=== PATIENT | male | born 1975 | race African-American/Black ===

== ENCOUNTER 2019-03-26 14:46 | Emergency (ER) | payer MEDICAID ==
[~2019-03-26] VITALS: Ht 188 cm; Wt 81.6 kg
[~2019-03-26 14:46] MED LIST: KEFLEX500 MG ORAL; NKM
--- NOTE | 2019-03-26 14:56 | Emergency Room Report ---
History of Present Illness General Chief Complaint: To Be Triaged Source: Patient Present Illness HPI Patient took a combination of Xanax and Escalon. His brought him in because he overdose. He said he was fed up with life but didn't want to hurt himself. He is frustrated with all the people with road rage. He denies taking any psychiatric medication at this time. He has an appointment for a psychiatrist but keeps on mixing up the dates. The patient smokes cigarettes and marijuana. He's used cocaine in the past but not recently. He denies intent to harm himself at this time. His stopped to fill the car with gas. She got back in the car he was unresponsive and she drove the car here. Patient states he has chronic pain. Pain is not increased. No fevers, chills, chest pain, palpitations, nausea, vomiting, diarrhea, dysuria , abdominal pain, shortness of breath, visual changes, headache. The patient was treated here in 2016. He was treated for impetigo. He demonstrated drug-seeking behavior at that time. Allergies: Coded Allergies: No Known Allergies (Unverified , 03/26/19) Patient History Past Medical History: see triage record Social History: Reports: smoking, drug use Social History Narrative Reviewed Nursing Documentation: PMH: Agreed; PSxH: Agreed Review of Systems All Other Systems: negative except mentioned in HPI Physical Exam Vital Signs Date Time Temp Pulse Resp B/P (MAP) Pulse Ox O2 Delivery O2 Flow Rate FiO2 03/26/19 14:54 98.1 84 16 115/77 (90) 100 Room Air Sp02 EP Interpretation: reviewed, normal General Appearance: well appearing, no apparent distress, non-toxic, lethargic Head: normocephalic, atraumatic Eyes: bilateral eye PERRL - Pinpoint, bilateral eye Scleral Injection ENT: moist mucus membranes Neck: supple Respiratory: lungs clear, normal breath sounds Cardiovascular #1: regular rate, rhythm Cardiovascular #2: 2+ radial (R) Gastrointestinal: normal inspection, normal bowel sounds, non tender, no mass, non-distended, scaphoid Musculoskeletal: back normal, normal range of motion Neurologic: motor strength/tone normal, DTRs symmetric, sensory intact, other - Slurred speech but good Psychiatric: other Reflexes: 1+ knee (R), 1+ knee (L) Skin: normal inspection, warm/dry Medical Decision Making Diagnostic Impression: Primary Impression: Drug overdose Qualified Codes: T50.901A - Poisoning by unspecified drugs, medicaments and biological substances, accidental (unintentional), initial encounter ER Course Patient presents after ingesting Escalon and Xanax. He denies suicidal intent at this time. Differential includes drug overdose, medication excess, left right imbalance, acute myocardial infarction amongst others. The patient will be evaluated with EKG and labs. Patient will receive IV hydration. He is placed on a monitoring specialist and observed. Chest x-ray not indicated due to oxygen saturation and chest exam. EKG without injury. CBC and CMP unremarkable. Patient did not provide urine. Patient threatening to leave but unsteady on his feet present and convince patient to stay. Patient sleeping and observed for several hours. Patient awake again. Still denies suicidal intent. Refuses further observation. Refuses to give urine. Advised patient of risk of . Patient insists on signing out AGAINST MEDICAL ADVICE. Patient taken home by . He states she will observe him and will return if there are further problems. Patient ambulates with steady gait. Laboratory Tests Test 03/26/19 15:10 White Blood Count 9.3 K/UL (4.8-10.8) Red Blood Count 5.13 M/UL (4.70-6.10) Hemoglobin 14.7 G/DL (14.2-18.0) Hematocrit 43.5 % (42.0-52.0) Mean Corpuscular Volume 85 FL (80-99) Mean Corpuscular Hemoglobin 28.6 PG (27.0-31.0) Mean Corpuscular Hemoglobin Concent 33.7 G/DL (32.0-36.0) Red Cell Distribution Width 11.4 % (11.6-14.8) L Platelet Count 273 K/UL (150-450) Mean Platelet Volume 5.5 FL (6.5-10.1) L Neutrophils (%) (Auto) % (45.0-75.0) Lymphocytes (%) (Auto) % (20.0-45.0) Monocytes (%) (Auto) % (1.0-10.0) Eosinophils (%) (Auto) % (0.0-3.0) Basophils (%) (Auto) % (0.0-2.0) Differential Total Cells Counted 100 Neutrophils % (Manual) 80 % (45-75) H Lymphocytes % (Manual) 13 % (20-45) L Monocytes % (Manual) 6 % (1-10) Eosinophils % (Manual) 1 % (0-3) Basophils % (Manual) 0 % (0-2) Band Neutrophils 0 % (0-8) Platelet Estimate Adequate Platelet Morphology Normal Red Blood Cell Morphology Normal Sodium Level 141 MMOL/L (136-145) Potassium Level 3.7 MMOL/L (3.5-5.1) Chloride Level 103 MMOL/L (98-107) Carbon Dioxide Level 31 MMOL/L (21-32) Anion Gap 7 mmol/L (5-15) Blood Urea Nitrogen 15 mg/dL (7-18) Creatinine 0.9 MG/DL (0.55-1.30) Estimate Glomerular Filtration Rate > 60 mL/min (>60) Glucose Level 98 MG/DL (74-106) Calcium Level 9.4 MG/DL (8.5-10.1) Total Bilirubin 0.6 MG/DL (0.2-1.0) Aspartate Amino Transferase (AST) 8 U/L (15-37) L Alanine Aminotransferase (ALT) 19 U/L (12-78) Alkaline Phosphatase 48 U/L (46-116) Total Creatine Kinase 103 U/L (26-308) Troponin I 0.000 ng/mL (0.000-0.056) Total Protein 7.1 G/DL (6.4-8.2) Albumin 4.3 G/DL (3.4-5.0) Globulin 2.8 g/dL Albumin/Globulin Ratio 1.5 (1.0-2.7) Salicylates Level 1.7 ug/mL (2.8-20) L Acetaminophen Level < 2 MCG/ML (10-30) L Serum Alcohol < 3 mg/dL EKG Diagnostic Results Rate: normal Rhythm: NSR ST Segments: no acute changes Rhythm Strip Diag. Results EP Interpretation: yes Rhythm: NSR, no PVC's, no ectopy Last Vital Signs Date Time Temp Pulse Resp B/P (MAP) Pulse Ox O2 Delivery O2 Flow Rate FiO2 03/26/19 19:20 03/26/19 15:00 98.1 70 16 100 Room Air Status: improved Disposition: AGAINST MEDICAL ADVICE Condition: Improved Jose Whitfield MD Mar 26, 2019 14:56
[2019-03-26] MEDS ORDERED: UNOBMED (14:57)
[2019-03-26 15:00] VITALS: BP 115/77
--- NOTE | 2019-03-26 15:00 | NUR ---
ED Nurse Note: pt present in ER due to overdose. pt aao x2 and refusing to give any further information. 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 I can concepcion you" for any care. skin clean and intact. pt is in gown and quality assurance monitor chassis. pt is fatigued and lethargic but able to report that he took Olancha and Ativan overdose but was not able to report dose for each medication. pt is ambulatory with weak gait.
[2019-03-26 15:33] LABS: HEMATOCRIT 43.5 % (42.0-52.0); HEMOGLOBIN 14.7 G/DL (14.2-18.0); MEAN CORPUSCULAR VOLUME 85 FL (80-99); PLATELET COUNT 273 K/UL (150-450); RED BLOOD COUNT 5.13 M/UL (4.70-6.10); RED CELL DISTRIBUTION WIDTH 11.4 % (11.6-14.8); WHITE BLOOD COUNT 9.3 K/UL (4.8-10.8)
[2019-03-26 15:45] LABS: ANION GAP 7 mmol/L (5-15); BLOOD UREA NITROGEN 15 mg/dL (7-18); CALCIUM 9.4 MG/DL (8.5-10.1); CARBON DIOXIDE 31 MMOL/L (21-32); CHLORIDE 103 MMOL/L (98-107); CREATININE 0.9 MG/DL (0.55-1.30); POTASSIUM 3.7 MMOL/L (3.5-5.1); SODIUM 141 MMOL/L (136-145)
--- NOTE | 2019-03-26 15:50 | NUR ---
ED Nurse Note: pt pulled out iv and cardiac rehabilitation specialist and dressed up and insisting he will go home AMA. TARAHD made aware.
[2019-03-26 15:54] LABS: ALANINE AMINOTRANSFERASE 19 U/L (12-78); ALBUMIN 4.3 G/DL (3.4-5.0); ALBUMIN/GLOBULIN RATIO 1.5 (1.0-2.7); ALKALINE PHOSPHATASE 48 U/L (46-116); ASPARTATE AMINO TRANSFERASE 8 U/L (15-37); BILIRUBIN,TOTAL 0.6 MG/DL (0.2-1.0); CREATINE KINASE 103 U/L (26-308)
--- NOTE | 2019-03-26 15:55 | NUR ---
ED Nurse Note: ERMD, , pt spoke and pt agreed with staying for continous care.
--- NOTE | 2019-03-26 16:04 | NUR ---
ED Nurse Note: New Iv made on Rt hand with 20 G.
--- NOTE | 2019-03-26 19:14 | NUR ---
HAND-OFF: Report given to SILVESTRE Dee. no orders to carry at this moment.
--- NOTE | 2019-03-26 19:20 | NUR ---
ED Nurse Note: pt woke up and tried to walk out AMA. pt aao x4 and at bedside. pt signed on AMA with fully understanding and after discussing the risk of AMA with ERMD. pt ambulated with steady gait. IV and id band removed. pt left ED with .
--- NOTE | 2019-03-26 19:34 | NUR ---
ED Nurse Note: unable to obtain VS due to pt's refusal x3. pt aao x4.
[2019-03-27] MEDS ORDERED: XANAX1 MG ORAL (16:53)
[2019-03-27] MEDS ORDERED: NORCO 10-325 T1 EACH ORAL (16:53)
--- NOTE | 2019-04-03 14:02 | Cardiology Report ---
APPROVED REPORT EKG Measurement Heart [id number] Normal sinus rhythm Normal ECG
== END 2019-03-26 19:34 | disposition left against medical advice (07) ==
LOC: EMR 19:20
DX: T42.4X1A Poisoning by benzodiazepines, accidental (unintentional), initial encounter (principal); X58.XXXA Exposure to other specified factors, initial encounter; Y92.9 Unspecified place or not applicable; F17.210 Nicotine dependence, cigarettes, uncomplicated; G89.29 Other chronic pain
CPT/HCPCS: 36415; 80053; 80329; 82550; 84484; 85007; 85025; 93005; 96360; 96361; 99284

== ENCOUNTER 2019-03-27 16:44 | Emergency (ER) | payer MEDICAID ==
[~2019-03-27] VITALS: Ht 188 cm; Wt 72.6 kg
[~2019-03-27 16:44] MED LIST changes: +UNOBMED
[2019-03-27] MEDS ORDERED: NORCO 10-325 T1 EACH ORAL (16:53)
[2019-03-27] MEDS ORDERED: XANAX1 MG ORAL (16:53)
--- NOTE | 2019-03-27 17:09 | NUR ---
ED Nurse Note: Pt came in from home due to confusion since yesterday after taking a "Fyffe pill", stated " the medication does not look like a regular Fyffe". Pt came in but was not able to give urine sample yesterday. Vital signs stable at this time. Will cont to monitor.
--- NOTE | 2019-03-27 17:10 | NUR ---
ED Nurse Note: Blood and urine collected and sent to lab.
[2019-03-27 17:23] LABS: BASOPHILS % (AUTO) 0.9 % (0.0-2.0); EOSINOPHILS % (AUTO) 2.4 % (0.0-3.0); HEMATOCRIT 43.1 % (42.0-52.0); HEMOGLOBIN 14.8 G/DL (14.2-18.0); LYMPHOCYTES % (AUTO) 27.5 % (20.0-45.0); MEAN CORPUSCULAR VOLUME 84 FL (80-99); MONOCYTES % (AUTO) 7.1 % (1.0-10.0); NEUTROPHILS % (AUTO) 62.1 % (45.0-75.0); PLATELET COUNT 279 K/UL (150-450); RED BLOOD COUNT 5.12 M/UL (4.70-6.10); RED CELL DISTRIBUTION WIDTH 11.3 % (11.6-14.8); WHITE BLOOD COUNT 8.7 K/UL (4.8-10.8)
--- NOTE | 2019-03-27 17:28 | NUR ---
ED Nurse Note: PT. WENT DOWN TO CT
[2019-03-27 17:30] LABS: ANION GAP 8 mmol/L (5-15); BLOOD UREA NITROGEN 12 mg/dL (7-18); CALCIUM 8.9 MG/DL (8.5-10.1); CARBON DIOXIDE 29 MMOL/L (21-32); CHLORIDE 105 MMOL/L (98-107); CREATININE 0.9 MG/DL (0.55-1.30); POTASSIUM 3.5 MMOL/L (3.5-5.1); SODIUM 142 MMOL/L (136-145)
[2019-03-27 17:34] LABS: ALANINE AMINOTRANSFERASE 19 U/L (12-78); ALBUMIN 4.1 G/DL (3.4-5.0); ALBUMIN/GLOBULIN RATIO 1.5 (1.0-2.7); ALKALINE PHOSPHATASE 52 U/L (46-116); ASPARTATE AMINO TRANSFERASE 12 U/L (15-37); BILIRUBIN,TOTAL 0.6 MG/DL (0.2-1.0)
--- NOTE | 2019-03-27 18:32 | Emergency Room Report ---
History of Present Illness General Chief Complaint: General Complaint Source: Patient Present Illness HPI Patient presents with reports of ongoing encephalopathy and change in mental status patient was here yesterday with extended stay at that time was dispositioned after becoming more oriented Patient's brought the patient to the ER today complaining of continuing confusion Concern about drug abuse And the inability to care for the patient at home Patient here is awake with minimal response Reports that he is not sure why he is here Initially denied any drug abuse Allergies: Coded Allergies: No Known Allergies (Unverified , 03/26/19) Patient History Past Medical History: see triage record Pertinent Family History: none Reviewed Nursing Documentation: PMH: Agreed; PSxH: Agreed Nursing Documentation-PMH Past Medical History: No History, Except For Hx Seizures: Yes Review of Systems All Other Systems: negative except mentioned in HPI Physical Exam Vital Signs Date Time Temp Pulse Resp B/P (MAP) Pulse Ox O2 Delivery O2 Flow Rate FiO2 03/27/19 16:48 98.1 75 18 122/81 (95) 98 Room Air Sp02 EP Interpretation: reviewed, normal General Appearance: mild distress - Mild confusion Head: normocephalic, atraumatic Eyes: bilateral eye PERRL, bilateral eye EOMI ENT: hearing grossly normal, TMs + canals normal, uvula midline, dry mucus membranes Neck: full range of motion, supple, no meningismus, no bony tend Respiratory: lungs clear, normal breath sounds, no rhonchi, no respiratory distress, no retraction, no accessory muscle use Cardiovascular #1: normal peripheral pulses, regular rate, rhythm, no edema, no gallop, no JVD, no murmur Gastrointestinal: normal bowel sounds, non tender, soft, no mass, no organomegaly, non-distended, no guarding, no hernia, no pulsatile mass, no rebound Genitourinary: no CVA tenderness Musculoskeletal: normal inspection Neurologic: responsive, motor strength/tone normal, sensory intact, other - With underlying confusion GCS 14 Psychiatric: mood/affect normal Skin: normal color, no rash, warm/dry, palpation normal Lymphatic: normal inspection, no adenopathy Medical Decision Making Diagnostic Impression: Primary Impression: multidrug overdose Additional Impression: Encephalopathy ER Course Multiple differentials and consideration including but not limited to neurological, infectious, medication related Patient's drug screen does show positive for marijuana, opiates, and benzodiazepine Patient continues to remain appropriately oriented towards the end of his stay However given his multiple presentations concern from family further inpatient care is requested And patient accepted at [facility] for further care Labs Test 03/27/19 17:05 White Blood Count 8.7 K/UL (4.8-10.8) Red Blood Count 5.12 M/UL (4.70-6.10) Hemoglobin 14.8 G/DL (14.2-18.0) Hematocrit 43.1 % (42.0-52.0) Mean Corpuscular Volume 84 FL (80-99) Mean Corpuscular Hemoglobin 29.0 PG (27.0-31.0) Mean Corpuscular Hemoglobin Concent 34.4 G/DL (32.0-36.0) Red Cell Distribution Width 11.3 % (11.6-14.8) Platelet Count 279 K/UL (150-450) Mean Platelet Volume 5.5 FL (6.5-10.1) Neutrophils (%) (Auto) 62.1 % (45.0-75.0) Lymphocytes (%) (Auto) 27.5 % (20.0-45.0) Monocytes (%) (Auto) 7.1 % (1.0-10.0) Eosinophils (%) (Auto) 2.4 % (0.0-3.0) Basophils (%) (Auto) 0.9 % (0.0-2.0) Sodium Level 142 MMOL/L (136-145) Potassium Level 3.5 MMOL/L (3.5-5.1) Chloride Level 105 MMOL/L (98-107) Carbon Dioxide Level 29 MMOL/L (21-32) Anion Gap 8 mmol/L (5-15) Blood Urea Nitrogen 12 mg/dL (7-18) Creatinine 0.9 MG/DL (0.55-1.30) Estimat Glomerular Filtration Rate > 60 mL/min (>60) Glucose Level 72 MG/DL (74-106) Calcium Level 8.9 MG/DL (8.5-10.1) Total Bilirubin 0.6 MG/DL (0.2-1.0) Aspartate Amino Transf (AST/SGOT) 12 U/L (15-37) Alanine Aminotransferase (ALT/SGPT) 19 U/L (12-78) Alkaline Phosphatase 52 U/L (46-116) Total Protein 6.8 G/DL (6.4-8.2) Albumin 4.1 G/DL (3.4-5.0) Globulin 2.7 g/dL Albumin/Globulin Ratio 1.5 (1.0-2.7) Salicylates Level 1.1 ug/mL (2.8-20) Urine Opiates Screen Positive (NEGATIVE) Acetaminophen Level < 2 MCG/ML (10-30) Urine Barbiturates Screen Negative (NEGATIVE) Phencyclidine (PCP) Screen Negative (NEGATIVE) Urine Amphetamines Screen Negative (NEGATIVE) Urine Benzodiazepines Screen Positive (NEGATIVE) Urine Cocaine Screen Negative (NEGATIVE) Urine Marijuana (THC) Screen Positive (NEGATIVE) Serum Alcohol < 3 mg/dL EKG Diagnostic Results Rate: normal Rhythm: NSR ST Segments: no acute changes Rhythm Strip Diag. Results EP Interpretation: yes Rate: 60 Rhythm: NSR, no PVC's, no ectopy CT/MRI/US Diagnostic Results CT/MRI/US Diagnostic Results : Impression CT head no acute disease Last Vital Signs Date Time Temp Pulse Resp B/P (MAP) Pulse Ox O2 Delivery O2 Flow Rate FiO2 03/27/19 17:12 75 18 Room Air 03/27/19 16:48 98.1 122/81 (95) 98 Status: improved Disposition: XFER SHT-TRM HOSP Condition: Improved Referrals: [facility],REFERRING (PCP) Domenic Davalos DO Mar 27, 2019 18:32
[2019-03-27 18:51] VITALS: BP 124/75
--- NOTE | 2019-03-27 20:18 | NUR ---
ED Nurse Note: Patient is in the bed , no acute disstress noticed, VSS at this time, is by bedside. Waiting for transportation.
[2019-03-27 21:49] VITALS: BP 124/75
--- NOTE | 2019-03-27 21:50 | NUR ---
ED Nurse Note: Patient was transfered to [facility] via [id number], due to encephalopathy and overdose. AAO x4, VSS at this time, skin is dry intact. Patient was transfered by S protocol with all belongings.
--- NOTE | 2019-03-28 10:44 | Diagnostic Imaging Report ---
Indication: Altered mental status Technique: Contiguous 5 mm thick transaxial imaging of the head obtained in a Siemens Sensation [address] scanner. Soft tissue and bone windows generated. Automatic Exposure Control was utilized. Total Dose length Product (DLP): 1354.[address] Dose Index Volume (CTDIvol): 70.38 mGy Comparison: none Findings: The size and configuration of the cortical sulci, basal cisterns, and ventricles are within normal limits for age. There is no mass effect, midline shift, or edema identified. There is no evidence of acute hemorrhage or abnormal intra-axial or extra-axial fluid collections. The bones and soft tissues are unremarkable. Impression: No mass effect, edema or acute bleed. [facility] has communicated the preliminary results to the Emergency Department. Their findings are largely concordant with this report. The CT scanner at [facility] is accredited by the [employer] and the scans are performed using dose optimization techniques as appropriate to a performed exam including Automatic Exposure control.
--- NOTE | 2019-03-28 15:14 | Cardiology Report ---
APPROVED REPORT EKG Measurement Heart [id number] Sinus bradycardia Otherwise normal ECG
== END 2019-03-27 21:54 | disposition short-term general hospital (02) ==
LOC: EMR 17:35
DX: T40.7X1A Poisoning by cannabis (derivatives), accidental (unintentional), initial encounter (principal); T40.601A Poisoning by unspecified narcotics, accidental (unintentional), initial encounter; T42.4X1A Poisoning by benzodiazepines, accidental (unintentional), initial encounter; Y92.9 Unspecified place or not applicable; G93.40 Encephalopathy, unspecified; G40.909 Epilepsy, unspecified, not intractable, without status epilepticus
CPT/HCPCS: 36415; 70450; 80053; 80307; 80329; 85025; 93005; 96360; 99284